=== PATIENT | male | born 1990 | race Caucasian/White ===

== ENCOUNTER → 2017-10-18 | Outpatient (REF) | payer OTHER ==
[2017-10-18 15:39] LABS: BASO # 0.1 10^3/uL (0.0-0.2); EOS # 0.2 10^3/uL (0.0-0.50); EOS % 2.3 % (0.0-3.0); HEMATOCRIT 46.1 % (42.0-52.0); HEMOGLOBIN 15.5 g/dl (14.0-18.0); IMMATURE GRANULOCYTE % 0.2 % (0-3.0); LYMPH # 2.7 10^3/uL (1.5-6.5); LYMPH % 27.4 % (24.0-44.0); MEAN CORPUSCULAR HEMOGLOBIN 28.1 pg (27.0-33.0); MEAN CORPUSCULAR HGB CONC 33.6 g/dl (32.0-36.5); MEAN CORPUSCULAR VOLUME 83.5 fl (80.0-96.0); MONO # 0.9 10^3/uL (0.0-0.8); MONO % 9.1 % (0.0-5.0); NEUTROPHILS # 5.9 10^3/uL (1.8-7.7); PLATELET COUNT, AUTOMATED 310 10^3/uL (150-450); RED BLOOD COUNT 5.52 10^6/uL (4.30-6.10); RED CELL DISTRIBUTION WIDTH 12.4 % (11.5-14.5); WHITE BLOOD COUNT 9.8 10^3/uL (4.0-10.0)
[2017-10-18 16:09] LABS: ALBUMIN 4.6 GM/DL (3.2-5.2); ALBUMIN/GLOBULIN RATIO 1.35 (1.00-1.93); ALKALINE PHOSPHATASE 74 U/L (45-117); ALT/SGPT 13 U/L (12-78); ANION GAP 8 MEQ/L (8-16); AST/SGOT 23 U/L (7-37); BILIRUBIN,TOTAL 0.6 MG/DL (0.2-1.0); BLOOD UREA NITROGEN 14 MG/DL (7-18); CARBON DIOXIDE LEVEL 29 MEQ/L (21-32); CHLORIDE LEVEL 104 MEQ/L (98-107); CHOLESTEROL LEVEL 153 MG/DL (<200); CHOLESTEROL RISK RATIO 2.593 (<5); CREATININE FOR GFR 0.83 MG/DL (0.70-1.30); GLOMERULAR FILTRATION RATE > 60.0 (>60); GLUCOSE, FASTING 82 MG/DL (70-100); HDL CHOLESTEROL 59 MG/DL (>40); NON-HDL-C 94 MG/DL; POTASSIUM SERUM 3.7 MEQ/L (3.5-5.1); SODIUM LEVEL 141 MEQ/L (136-145); TRIGLYCERIDES LEVEL 70 MG/DL (<150)
[2017-10-19 10:39] LABS: HEPATITIS C VIRUS ABY INDEX 0.1 INDEX (<0.8); HIV 1&2 SCREEN CENTAUR NEGATIVE (NEGATIVE)
== END ==
LOC: M SFHCPLAZ 14:39
DX: J45.990 Exercise induced bronchospasm (principal); Z13.220 Encounter for screening for lipoid disorders; Z91.89 Other specified personal risk factors, not elsewhere classified

== ENCOUNTER → 2018-05-21 | Outpatient (REF) | payer OTHER | LOC: M SFHCPLAZ 15:25 | DX: J02.8 Acute pharyngitis due to other specified organisms (principal) ==

== ENCOUNTER 2019-05-27 08:09 | Emergency (ER) | payer OTHER ==
[~2019-05-27] VITALS: Ht 177.8 cm; Wt 87.2 kg
[2019-05-27] MEDS ORDERED: ALBU8.5H (08:19)
[2019-05-27] MEDS ORDERED: IBUP-1022 PO (08:19)
[2019-05-27] MEDS ORDERED: ONDANSETRON 4 MG ORAL DISINTEGRATING TAB (Q0162 PER 1MG) PO ONE (09:30)
[2019-05-27] MEDS ORDERED: ACETAMINOPHEN 500 MG TAB PO ONE (09:30)
[2019-05-27] MEDS ORDERED: BACITRACIN OINT 30GM TOP PRN (09:30)
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
[2019-05-27] MEDS ORDERED: CEPHALEXIN 500 MG CAP PO ONE (10:45)
[2019-05-27] MEDS ORDERED: KEFL500C17 PO (10:46)
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
[2019-05-27] MEDS ORDERED: NAPR-837 PO (11:22)
[2019-05-27 11:27] VITALS: BP 145/85
== END 2019-05-27 11:29 | disposition home or self-care (01) ==
LOC: M ED 08:09
DX: T76.11XA Adult physical abuse, suspected, initial encounter (principal); S01.81XA Laceration without foreign body of other part of head, initial encounter; S09.90XA Unspecified injury of head, initial encounter; X99.0XXA Assault by sharp glass, initial encounter; Y92.59 Other trade areas as the place of occurrence of the external cause; Y93.89 Activity, other specified; Y99.8 Other external cause status; M25.552 Pain in left hip; M25.562 Pain in left knee; F17.200 Nicotine dependence, unspecified, uncomplicated
CPT/HCPCS: 16000; 70450; 73502; 73564; 99284; Q0162

== ENCOUNTER → 2021-05-25 | Outpatient (CLI) | payer OTHER ==
[~2021-05-25] MED LIST: ALBU8.5H; IBUP-1022 PO; KEFL500C17 PO; NAPR-837 PO
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
[2021-05-25 11:08] LABS: BASO % 0.7 % (0.0-1.0); EOS # 0.2 10^3/uL (0.0-0.5); EOS % 3.3 % (0.0-3.0); HEMATOCRIT 47.5 % (42.0-52.0); LYMPH # 2.1 10^3/uL (1.5-5.0); LYMPH % 35.1 % (24.0-44.0); MEAN CORPUSCULAR HEMOGLOBIN 28.6 pg (27.0-33.0); MEAN CORPUSCULAR HGB CONC 33.7 g/dl (32.0-36.5); MONO # 0.6 10^3/uL (0.0-0.8); MONO % 9.1 % (2.0-8.0); NEUTROPHILS # 3.1 10^3/uL (1.5-8.5); NEUTROPHILS % 51.6 % (36.0-66.0); PLATELET COUNT, AUTOMATED 310 10^3/uL (150-450); RED BLOOD COUNT 5.59 10^6/uL (4.30-6.10)
[2021-05-25 11:39] LABS: ALBUMIN 4.2 GM/DL (3.2-5.2); ALT/SGPT 26 U/L (12-78); BILIRUBIN,TOTAL 0.7 MG/DL (0.2-1.0); BLOOD UREA NITROGEN 13 MG/DL (7-18); CALCIUM LEVEL 9.8 MG/DL (8.5-10.1); CARBON DIOXIDE LEVEL 33 MEQ/L (21-32); CHLORIDE LEVEL 103 MEQ/L (98-107); CHOLESTEROL LEVEL 136 MG/DL (<200); CHOLESTEROL RISK RATIO 3.022 (<5); GLOMERULAR FILTRATION RATE > 60.0 (>60); GLUCOSE, FASTING 94 MG/DL (70-100); HDL CHOLESTEROL 45 MG/DL (>40); LDL CHOLESTEROL 80 MG/DL (<100); NON-HDL-C 91 MG/DL; POTASSIUM SERUM 3.9 MEQ/L (3.5-5.1); SODIUM LEVEL 140 MEQ/L (136-145); TOTAL PROTEIN 7.2 GM/DL (6.4-8.2); TRIGLYCERIDES LEVEL 57 MG/DL (<150)
== END ==
LOC: M PLARAD 08:50 → M PLAIMG 08:50
PROVIDERS: ATTEND Physician Assistant Medical
DX: Z13.220 Encounter for screening for lipoid disorders (principal); J30.9 Allergic rhinitis, unspecified; M79.671 Pain in right foot

== ENCOUNTER → 2021-06-22 | Outpatient (CLI) | payer OTHER ==
--- NOTE | 2021-06-22 10:19 | REP ---
INDICATION: POLYNEUROPATHY, UNSPECIFIED COMPARISON: None. TECHNIQUE: AP, lateral, coned-down views of the lumbar spine. FINDINGS: Three views of the lumbosacral spine demonstrate satisfactory alignment and lordosis without acute fracture / compression injury or subluxation. IMPRESSION: 1. No acute fracture / compression injury or subluxation. 2. No significant degenerative changes appreciated. <Electronically signed by Feroz Joshua > 06/22/21 [id number]
[2021-06-22 12:35] LABS: HEMOGLOBIN A1c 5.2 %
== END ==
LOC: M PLAIMG 08:48
PROVIDERS: ATTEND Physician Assistant Medical
DX: G62.9 Polyneuropathy, unspecified (principal)

== ENCOUNTER → 2021-10-18 | Outpatient (REF) | payer OTHER | LOC: M SFHCPLAZ 17:11 | PROVIDERS: ATTEND Physician Assistant | DX: H92.01 Otalgia, right ear (principal) ==

== ENCOUNTER → 2022-04-24 | Outpatient (CLI) | payer OTHER | LOC: M PLAIMG 13:41 | PROVIDERS: ATTEND Physician Assistant Medical | DX: R05.1 Acute cough (principal) ==

== ENCOUNTER → 2022-08-16 | Outpatient (CLI) | payer OTHER ==
[2022-08-16 15:26] LABS: BASO # 0.1 10^3/uL (0.0-0.2); EOS # 0.1 10^3/uL (0.0-0.5); EOS % 1.7 % (0.0-3.0); HEMATOCRIT 46.9 % (42.0-52.0); HEMOGLOBIN 15.3 g/dl (13.5-17.5); LYMPH # 2.4 10^3/uL (1.5-5.0); LYMPH % 30.4 % (24.0-44.0); MEAN CORPUSCULAR HEMOGLOBIN 27.8 pg (27.0-33.0); MEAN CORPUSCULAR HGB CONC 32.6 g/dl (32.0-36.5); MEAN CORPUSCULAR VOLUME 85.3 fl (80.0-96.0); MONO # 0.7 10^3/uL (0.0-0.8); MONO % 8.8 % (2.0-8.0); NEUTROPHILS # 4.6 10^3/uL (1.5-8.5); PLATELET COUNT, AUTOMATED 304 10^3/uL (150-450); WHITE BLOOD COUNT 7.9 10^3/uL (4.0-10.0)
[2022-08-16 15:58] LABS: ALBUMIN 4.5 G/DL (3.2-5.2); ALKALINE PHOSPHATASE 59 U/L (46-116); ALT/SGPT 11 U/L (7.0-40); AST/SGOT 28 U/L (<34); BILIRUBIN,TOTAL 1.1 MG/DL (0.3-1.2); BLOOD UREA NITROGEN 9 MG/DL (9-23); CALCIUM LEVEL 10.3 MG/DL (8.5-10.1); CARBON DIOXIDE LEVEL 31 MMOL/L (20-31); CHLORIDE LEVEL 100 MMOL/L (98-107); CREATININE FOR GFR 0.83 MG/DL (0.70-1.30); GLOMERULAR FILTRATION RATE > 60.0 (>60); GLUCOSE, FASTING 79 MG/DL (60-100); POTASSIUM SERUM 4.1 MMOL/L (3.5-5.1); SODIUM LEVEL 137 MMOL/L (136-145); TOTAL PROTEIN 7.4 G/DL (5.7-8.2)
[2022-08-16 16:00] LABS: THYROID STIMULATING HORMONE 0.976 uIU/ML (0.55-4.78); VITAMIN B12 LEVEL 280 PG/ML (211-911)
== END ==
LOC: M PLALAB 13:58
PROVIDERS: ATTEND Physician Assistant
DX: E53.8 Deficiency of other specified B group vitamins (principal); F22 Delusional disorders

== ENCOUNTER 2023-10-04 05:50 | Emergency (ER) | payer OTHER ==
[~2023-10-04] VITALS: Ht 182.9 cm; Wt 93.0 kg
[2023-10-04 07:15] LABS: RSV AMPLIFICATION NEGATIVE (NEGATIVE)
[2023-10-04] MEDS ORDERED: AMOX500C PO (07:33)
[2023-10-04 07:57] VITALS: BP 148/98; TEMP 98.6; O2SAT 99
== END 2023-10-04 07:53 | disposition home or self-care (01) ==
LOC: M ED 05:50
DX: U07.1 COVID-19 (principal); J02.9 Acute pharyngitis, unspecified; Z20.822 Contact with and (suspected) exposure to COVID-19; J45.909 Unspecified asthma, uncomplicated

== ENCOUNTER 2023-11-07 11:28 | Emergency (ER) | payer OTHER ==
[~2023-11-07] VITALS: Ht 182.9 cm; Wt 95.5 kg
[~2023-11-07 11:28] MED LIST changes: +AMOX500C PO
[2023-11-07 13:44] VITALS: BP 140/96; TEMP 98.3; O2SAT 97
[2023-11-07] MEDS ORDERED: KETO10TAB PO (13:51)
== END 2023-11-07 13:54 | disposition home or self-care (01) ==
LOC: M ED 11:28
DX: S92.354A Nondisplaced fracture of fifth metatarsal bone, right foot, initial encounter for closed fracture (principal); W19.XXXA Unspecified fall, initial encounter; Y92.009 Unspecified place in unspecified non-institutional (private) residence as the place of occurrence of the external cause; Y93.89 Activity, other specified; Y99.9 Unspecified external cause status

== ENCOUNTER → 2023-11-16 | Outpatient (CLI) | payer OTHER ==
[~2023-11-16] MED LIST changes: +KETO10TAB PO
== END ==
LOC: M SOG 13:28
PROVIDERS: ATTEND Physician Assistant
DX: S92.354A Nondisplaced fracture of fifth metatarsal bone, right foot, initial encounter for closed fracture (principal); Y93.9 Activity, unspecified; Y92.9 Unspecified place or not applicable

== ENCOUNTER → 2023-12-03 | Outpatient (CLI) | payer OTHER | LOC: M SOG 09:21 | PROVIDERS: ATTEND Physician Assistant | DX: S92.354A Nondisplaced fracture of fifth metatarsal bone, right foot, initial encounter for closed fracture (principal); X58.XXXA Exposure to other specified factors, initial encounter; Y92.9 Unspecified place or not applicable; Y93.9 Activity, unspecified; Y99.9 Unspecified external cause status ==

== ENCOUNTER → 2023-12-25 | Outpatient (CLI) | payer OTHER | LOC: M SOG 08:01 | PROVIDERS: ATTEND Physician Assistant | DX: S92.354D Nondisplaced fracture of fifth metatarsal bone, right foot, subsequent encounter for fracture with routine healing (principal) ==

== ENCOUNTER → 2024-02-07 | Outpatient (CLI) | payer OTHER | LOC: M SOG 07:59 | PROVIDERS: ATTEND Physician Assistant | DX: S92.354D Nondisplaced fracture of fifth metatarsal bone, right foot, subsequent encounter for fracture with routine healing (principal); Z53.9 Procedure and treatment not carried out, unspecified reason ==

== ENCOUNTER → 2024-02-19 | Outpatient (CLI) | payer OTHER | LOC: M SOG 07:56 | PROVIDERS: ATTEND Physician Assistant | DX: S92.354D Nondisplaced fracture of fifth metatarsal bone, right foot, subsequent encounter for fracture with routine healing (principal); Z53.9 Procedure and treatment not carried out, unspecified reason ==

== ENCOUNTER 2024-07-31 11:09 | Emergency (ER) | payer OTHER ==
[~2024-07-31] VITALS: Ht 180.3 cm; Wt 95.2 kg
[2024-07-31] MEDS ORDERED: VYVA30CA4 (11:37)
[2024-07-31] MEDS ORDERED: LISI20TA33 (11:37)
[2024-07-31] MEDS: LIDOCAINE 1% MDV 20ML VIAL SC ONE (13:58)
[2024-07-31] MEDS ORDERED: DOXY-440 PO (14:19)
[2024-07-31] MEDS: DOXYCYCLINE HYCLATE 100MG TABLET PO ONE (14:51)
[2024-07-31 14:54] VITALS: BP 165/85; TEMP 98; O2SAT 100
== END 2024-07-31 14:55 | disposition home or self-care (01) ==
LOC: M ED 11:09
DX: L02.214 Cutaneous abscess of groin (principal)

== ENCOUNTER → 2024-09-01 | Outpatient (REF) | payer OTHER ==
[~2024-09-01] MED LIST changes: +DOXY-440 PO; +LISI20TA33; +VYVA30CA4
[2024-09-01 17:23] LABS: ALBUMIN 4.2 G/DL (3.2-5.2); ALKALINE PHOSPHATASE 61 U/L (40-129); ALT/SGPT 24 U/L (7.0-40); AST/SGOT 24 U/L (<34); BILIRUBIN,TOTAL 0.4 MG/DL (0.3-1.2); BLOOD UREA NITROGEN 14 MG/DL (9-23); CALCIUM LEVEL 9.5 MG/DL (8.5-10.1); CARBON DIOXIDE LEVEL 28 MMOL/L (20-31); CHLORIDE LEVEL 104 MMOL/L (98-107); CHOLESTEROL LEVEL 172 MG/DL (<200); CHOLESTEROL RISK RATIO 2.97 (<5); CREATININE FOR GFR 0.82 MG/DL (0.70-1.30); GLOMERULAR FILTRATION RATE > 60.0 (>60); GLUCOSE, FASTING 81 MG/DL (60-100); HDL CHOLESTEROL 57.8 MG/DL (>40); LDL CHOLESTEROL 103.4 MG/DL (<100); NON-HDL-C 114.2 MG/DL; POTASSIUM SERUM 4.7 MMOL/L (3.5-5.1); SODIUM LEVEL 141 MMOL/L (136-145); TOTAL PROTEIN 7.2 G/DL (5.7-8.2); TRIGLYCERIDES LEVEL 54 MG/DL (<150)
[2024-09-01 17:24] LABS: THYROID STIMULATING HORMONE 0.327 uIU/ML (0.55-4.78)
[2024-09-01 17:29] LABS: HEMATOCRIT 45.8 % (42.0-52.0); HEMOGLOBIN 15.3 g/dl (13.5-17.5); MEAN CORPUSCULAR HEMOGLOBIN 28.8 pg (27.0-33.0); MEAN CORPUSCULAR HGB CONC 33.4 g/dl (32.0-36.5); MEAN CORPUSCULAR VOLUME 86.1 fl (80.0-96.0); PLATELET COUNT, AUTOMATED 275 10^3/uL (150-450); RED BLOOD COUNT 5.32 10^6/uL (4.30-6.10); WHITE BLOOD COUNT 5.9 10^3/uL (4.0-10.0)
== END ==
LOC: M LAB REF 16:27
PROVIDERS: ATTEND Student in an Organized Health Care Education/Training Program
DX: Z00.01 Encounter for general adult medical examination with abnormal findings (principal)

== ENCOUNTER → 2024-09-10 | Outpatient (REF) | payer OTHER ==
[2024-09-10 14:45] LABS: THYROID STIMULATING HORMONE 0.221 uIU/ML (0.55-4.78)
[2024-09-10 14:46] LABS: FREE T4 1.29 NG/DL (0.89-1.76)
[2024-09-10 14:48] LABS: THYROID PEROXIDASE ANTIBODY < 28.0 U/ML (<60.0)
[2024-09-10 14:51] LABS: THYROGLOBULIN ANTIBODY < 15.0 U/ML (<60.0)
== END ==
LOC: M LAB REF 13:12
PROVIDERS: ATTEND Student in an Organized Health Care Education/Training Program
DX: R94.6 Abnormal results of thyroid function studies (principal)

== ENCOUNTER 2024-10-14 09:31 | Emergency (ER) | payer OTHER ==
[~2024-10-14] VITALS: Ht 182.9 cm; Wt 42.4 kg
[2024-10-14 09:33] VITALS: BP 146/98; TEMP 97.5; O2SAT 98
== END 2024-10-14 11:00 | disposition home or self-care (01) ==
LOC: M ED 09:31
DX: S83.92XA Sprain of unspecified site of left knee, initial encounter (principal); W19.XXXA Unspecified fall, initial encounter; Y92.89 Other specified places as the place of occurrence of the external cause; Y93.89 Activity, other specified; Y99.0 Civilian activity done for income or pay